=== PATIENT | male | born 1950 | race African-American/Black ===

== ENCOUNTER 2018-06-04 05:12 | Inpatient (IN) ==
[2018-06-04] MEDS ORDERED: ONDANSETRON 4 MG/2 ML VIAL IV PRN (06:30)
[2018-06-04] MEDS ORDERED: GLUCAGON 1 MG VIAL IM PRN (06:33)
[2018-06-04] MEDS ORDERED: DEXTROSE 50% 25 GM/50 ML VIAL IV PRN (06:33)
[2018-06-04] MEDS: SODIUM CHLORIDE 0.9% 1,000 ML IV SCH ×3 (06:40→23:26)
[2018-06-04] MEDS: methylPREDNISolone SOD SUC 40 MG/1 ML VIAL IV SCH ×3 (06:46→23:35)
[2018-06-04] MEDS ORDERED: LIDOCAINE 1% 20 ML VIAL MISC INJ ONE (06:49)
[2018-06-04] MEDS: PROPOFOL 1,000 MG/100 ML BOTTLE IV SCH ×4 (06:55→21:32)
[2018-06-04 07:09] LABS: Basophils % 0.2 % (0.0-0.8); Hematocrit 41.1 VOL% (42.0-52.0); Hemoglobin 14.1 GM/DL (14.0-18.0); Immature Granulocytes Absolute 0.13 #; Lymphocytes # 0.5 10*3/uL (1.4-4.0); Lymphocytes % 3.9 % (21.2-54.2); Mean Corpuscular HGB Conc 34.3 GM/DL (32-36); Mean Corpuscular Hemoglobin 32 PG (27-34); Mean Corpuscular Volume 94.5 FL (87-102); Mean Platelet Volume 11.3 FL (9.6-12.0); Monocytes # 0.6 10*3/uL (0.11-0.8); Monocytes % 4.8 % (1.7-12.7); Neutrophils % 90.1 % (38.7-73.9); Platelet Count 142 T/CUMM (130-400); Red Blood Count 4.35 MC/CUMM (3.8-5.5); Red Cell Distribution Width 14.8 % (9.3-17.3); White Blood Count 13.3 T/CUMM (4-12)
[2018-06-04 07:17] LABS: Apearance,Urine Slightly Hazy (Clear); Bacteria,Urine Occasional /HPF (Few); Bilirubin,Urine Negative (Negative); Blood, Urine Small mg/dL (Negative); Glucose,Urine (UA) 150 mg/dL (Negative); Ketones,Urine 5 mg/dL (Negative); Mucus,Urine Occasional /LPF (Occasional); Nitrite,Urine Negative (Negative); Protein,Urine 100 MG/DL; RBC,Urine 9 /HPF (0-4); Squamous Epithelial Cell,Urine Occasional /HPF (0-10); Urine Color Amber (Yellow); Urine Specific Gravity 1.015 (1.001-1.035); WBC,Urine 11 /HPF (0-6)
[2018-06-04] MEDS ORDERED: POTASSIUM CHLORIDE RIDER 100 ML IV ONE (07:17)
[2018-06-04] MEDS: CEFEPIME 1,000 MG in SYRINGE 1 EACH IV SCH ×2 (07:25→20:22)
[2018-06-04 07:28] LABS: Band Neutrophils 1 % (0-10); Lymphocytes 4 % (20-55); Platelet Estimate Normal; Segmented Neutrophils 89 % (50-85); Total Cells Counted 100
[2018-06-04 07:29] LABS: Hypochromasia 1+; Ovalocytes Slight
[2018-06-04] MEDS: POTASSIUM CHLORIDE RIDER 10 MEQ in PREMIX 1 EACH IV SCH ×2 (07:33→08:30)
[2018-06-04] MEDS: ENOXAPARIN 40 MG/0.4 ML SYRINGE SUBCUT SCH (07:34)
[2018-06-04] MEDS: CLINDAMYCIN INJ 600 MG in PREMIX 1 EACH IV SCH ×3 (07:36→23:35)
[2018-06-04 07:44] LABS: Albumin 3.1 G/DL (3.4-5.0); Bilirubin,Total 2.4 MG/DL (0.2-1.0); Calcium 8.4 MG/DL (8.5-10.1); Osmolality,Calculated 274.8 MOS/KG (273-304); Potassium 3.1 MMOL/L (3.5-5.1); Total Protein 8.5 G/DL (6.4-8.3)
[2018-06-04 08:22] LABS: ABG Base Excess -1.6 MMOL/L (-2.5-2.5); ABG Oxygen Saturation 96.8 % (95-100); ABG PCO2 32.7 MM HG (35-48); ABG PH 7.432 (7.35-7.45); ABG TCO2 18.8 MMOL/L (23-27)
[2018-06-04] MEDS: LANSOPRAZOLE ODT 30 MG TABLET NG SCH (08:50)
[2018-06-04] MEDS: METOPROLOL TARTRATE 50 MG TABLET PO SCH ×2 (08:50→21:58)
[2018-06-04] MEDS: amLODIPine 10 MG TABLET PO SCH (09:00)
[2018-06-04] MEDS: INSULIN LISPRO 100 UNIT/ML SUBCUT SCH ×3 (12:00→23:36)
[2018-06-04] MEDS: fentaNYL INJ 1,250 MCG in SODIUM CHLORIDE 0.9% 225 ML IV PRN (17:25)
[2018-06-04] MEDS: LOVASTATIN 20 MG TABLET PO SCH (18:10)
[2018-06-04] MEDS ORDERED: FUROSEMIDE 20 MG/2 ML VIAL IV ONE (21:30)
[2018-06-04] MEDS ORDERED: SODIUM CHLORIDE 0.9% 1,000 ML IV ONE (23:16)
[2018-06-05] MEDS: SODIUM CHLORIDE 0.9% 1,000 ML IV SCH ×3 (00:15→18:13)
[2018-06-05 03:38] LABS: Basophils % 0.1 % (0.0-0.8); Hematocrit 36.3 VOL% (42.0-52.0); Hemoglobin 12.2 GM/DL (14.0-18.0); Immature Granulocytes % 0.7 %; Lymphocytes # 0.7 10*3/uL (1.4-4.0); Mean Corpuscular HGB Conc 33.6 GM/DL (32-36); Mean Corpuscular Hemoglobin 32 PG (27-34); Mean Platelet Volume 11.6 FL (9.6-12.0); Monocytes # 0.8 10*3/uL (0.11-0.8); Monocytes % 5.2 % (1.7-12.7); Neutrophils # 13.1 10*3/uL (1.4-7.4); Platelet Count 131 T/CUMM (130-400); Red Blood Count 3.82 MC/CUMM (3.8-5.5); White Blood Count 14.7 T/CUMM (4-12)
[2018-06-05 03:47] LABS: ABG Base Excess -3.7 MMOL/L (-2.5-2.5); ABG HCO3 21.4 MMOL/L (20-26); ABG Oxygen Saturation 98.7 % (95-100); ABG PCO2 35.3 MM HG (35-48); ABG PH 7.379 (7.35-7.45); ABG TCO2 18.4 MMOL/L (23-27)
[2018-06-05] MEDS: fentaNYL INJ 1,250 MCG in SODIUM CHLORIDE 0.9% 225 ML IV PRN ×3 (03:55→19:03)
[2018-06-05 04:25] LABS: Calcium 7.9 MG/DL (8.5-10.1); Osmolality,Calculated 286.5 MOS/KG (273-304); Potassium 3.9 MMOL/L (3.5-5.1)
[2018-06-05 04:29] LABS: Prealbumin 7.9 MG/DL (20-40)
[2018-06-05] MEDS: INSULIN LISPRO 100 UNIT/ML SUBCUT SCH ×3 (05:51→18:13)
[2018-06-05] MEDS: methylPREDNISolone SOD SUC 40 MG/1 ML VIAL IV SCH ×3 (06:14→22:13)
[2018-06-05] MEDS: CLINDAMYCIN INJ 600 MG in PREMIX 1 EACH IV SCH ×3 (06:14→22:14)
[2018-06-05] MEDS: PROPOFOL 1,000 MG/100 ML BOTTLE IV SCH ×3 (06:23→19:02)
[2018-06-05] MEDS: CEFEPIME 1,000 MG in SYRINGE 1 EACH IV SCH ×2 (08:52→21:05)
[2018-06-05] MEDS: ENOXAPARIN 40 MG/0.4 ML SYRINGE SUBCUT SCH (08:52)
[2018-06-05] MEDS: amLODIPine 10 MG TABLET PO SCH (09:36)
[2018-06-05] MEDS: LANSOPRAZOLE ODT 30 MG TABLET NG SCH (09:37)
[2018-06-05] MEDS: METOPROLOL TARTRATE 50 MG TABLET PO SCH ×2 (09:37→21:06)
[2018-06-05] MEDS: LOVASTATIN 20 MG TABLET PO SCH (18:13)
[2018-06-06] MEDS: INSULIN LISPRO 100 UNIT/ML SUBCUT SCH ×4 (00:55→19:10)
[2018-06-06] MEDS: fentaNYL INJ 1,250 MCG in SODIUM CHLORIDE 0.9% 225 ML IV PRN ×4 (01:00→20:47)
[2018-06-06] MEDS: SODIUM CHLORIDE 0.9% 1,000 ML IV SCH ×2 (02:55→09:37)
[2018-06-06 03:06] LABS: ABG Base Excess -4.3 MMOL/L (-2.5-2.5); ABG HCO3 20.8 MMOL/L (20-26); ABG Oxygen Saturation 98.2 % (95-100); ABG PCO2 37.7 MM HG (35-48); ABG TCO2 18.5 MMOL/L (23-27); Allen Test Positive; Pt O2 Delivery Device Ventilator
[2018-06-06] MEDS: PROPOFOL 1,000 MG/100 ML BOTTLE IV SCH ×4 (03:10→20:29)
[2018-06-06 04:01] LABS: Hematocrit 35.7 VOL% (42.0-52.0); Immature Granulocytes Absolute 0.13 #; Lymphocytes # 0.6 10*3/uL (1.4-4.0); Lymphocytes % 4.5 % (21.2-54.2); Mean Corpuscular HGB Conc 33.6 GM/DL (32-36); Mean Corpuscular Hemoglobin 31 PG (27-34); Mean Corpuscular Volume 93.2 FL (87-102); Mean Platelet Volume 11.8 FL (9.6-12.0); Monocytes # 0.6 10*3/uL (0.11-0.8); Monocytes % 4.4 % (1.7-12.7); Neutrophils # 11.5 10*3/uL (1.4-7.4); Neutrophils % 90.1 % (38.7-73.9); Platelet Count 145 T/CUMM (130-400); Red Blood Count 3.83 MC/CUMM (3.8-5.5); Red Cell Distribution Width 15.4 % (9.3-17.3); White Blood Count 12.8 T/CUMM (4-12)
[2018-06-06 04:42] LABS: Albumin 2.4 G/DL (3.4-5.0); Bilirubin,Total 0.5 MG/DL (0.2-1.0); Calcium 7.8 MG/DL (8.5-10.1); Osmolality,Calculated 294.4 MOS/KG (273-304)
[2018-06-06 04:56] LABS: Band Neutrophils 2 % (0-10); Hypochromasia 1+; Lymphocytes 3 % (20-55); Segmented Neutrophils 93 % (50-85); Total Cells Counted 100
[2018-06-06 04:57] LABS: Microcytosis Slight; Platelet Estimate Adequate
[2018-06-06] MEDS: CLINDAMYCIN INJ 600 MG in PREMIX 1 EACH IV SCH ×2 (06:23→16:41)
[2018-06-06] MEDS: methylPREDNISolone SOD SUC 40 MG/1 ML VIAL IV SCH ×2 (06:52→16:38)
[2018-06-06] MEDS: CEFEPIME 1,000 MG in SYRINGE 1 EACH IV SCH ×2 (09:31→20:03)
[2018-06-06] MEDS: ENOXAPARIN 40 MG/0.4 ML SYRINGE SUBCUT SCH (09:31)
[2018-06-06] MEDS: LANSOPRAZOLE ODT 30 MG TABLET NG SCH (09:32)
[2018-06-06] MEDS: METOPROLOL TARTRATE 50 MG TABLET PO SCH ×2 (09:32→20:04)
[2018-06-06] MEDS: amLODIPine 10 MG TABLET PO SCH (09:38)
[2018-06-06] MEDS: LACTATED RINGERS 1,000 ML IV SCH ×2 (12:32→22:32)
[2018-06-06] MEDS: LOVASTATIN 20 MG TABLET PO SCH (16:38)
[2018-06-07] MEDS: methylPREDNISolone SOD SUC 40 MG/1 ML VIAL IV SCH ×2 (00:05→06:02)
[2018-06-07] MEDS: CLINDAMYCIN INJ 600 MG in PREMIX 1 EACH IV SCH ×3 (00:06→15:35)
[2018-06-07] MEDS: INSULIN LISPRO 100 UNIT/ML SUBCUT SCH ×5 (00:06→20:13)
[2018-06-07] MEDS: PROPOFOL 1,000 MG/100 ML BOTTLE IV SCH ×2 (01:29→08:03)
[2018-06-07] MEDS: fentaNYL INJ 1,250 MCG in SODIUM CHLORIDE 0.9% 225 ML IV PRN (02:33)
[2018-06-07 04:10] LABS: Basophils % 0.1 % (0.0-0.8); Hematocrit 35.5 VOL% (42.0-52.0); Hemoglobin 11.9 GM/DL (14.0-18.0); Immature Granulocytes % 1.3 %; Immature Granulocytes Absolute 0.14 #; Lymphocytes # 0.7 10*3/uL (1.4-4.0); Lymphocytes % 6.7 % (21.2-54.2); Mean Corpuscular HGB Conc 33.5 GM/DL (32-36); Mean Corpuscular Hemoglobin 32 PG (27-34); Mean Corpuscular Volume 95.9 FL (87-102); Mean Platelet Volume 11.4 FL (9.6-12.0); Monocytes # 0.6 10*3/uL (0.11-0.8); Monocytes % 5.8 % (1.7-12.7); Neutrophils # 9.4 10*3/uL (1.4-7.4); Neutrophils % 86.1 % (38.7-73.9); Platelet Count 160 T/CUMM (130-400); Red Cell Distribution Width 15.4 % (9.3-17.3); White Blood Count 10.9 T/CUMM (4-12)
[2018-06-07 04:12] LABS: ABG Base Excess -2.9 MMOL/L (-2.5-2.5); ABG HCO3 21.9 MMOL/L (20-26); ABG Oxygen Saturation 94.4 % (95-100); ABG PCO2 41.8 MM HG (35-48); ABG PH 7.344 (7.35-7.45); ABG PO2 80.5 MM HG (80-95); ABG TCO2 20.3 MMOL/L (23-27)
[2018-06-07 04:46] LABS: Prealbumin 15.6 MG/DL (20-40)
[2018-06-07 05:01] LABS: Calcium 7.9 MG/DL (8.5-10.1); Osmolality,Calculated 296.1 MOS/KG (273-304); Potassium 4.3 MMOL/L (3.5-5.1)
[2018-06-07] MEDS: CEFEPIME 1,000 MG in SYRINGE 1 EACH IV SCH (08:04)
[2018-06-07] MEDS: ENOXAPARIN 40 MG/0.4 ML SYRINGE SUBCUT SCH (08:04)
[2018-06-07] MEDS: LANSOPRAZOLE ODT 30 MG TABLET NG SCH (08:05)
[2018-06-07] MEDS: amLODIPine 10 MG TABLET PO SCH (08:05)
[2018-06-07] MEDS: METOPROLOL TARTRATE 50 MG TABLET PO SCH ×2 (08:05→20:14)
[2018-06-07 08:39] LABS: ABG Base Excess -2.7 MMOL/L (-2.5-2.5); ABG HCO3 22.1 MMOL/L (20-26); ABG Oxygen Saturation 95.8 % (95-100); ABG PCO2 38.6 MM HG (35-48); ABG PH 7.368 (7.35-7.45); ABG PO2 86.3 MM HG (80-95); ABG TCO2 19.5 MMOL/L (23-27); Allen Test Positive; Pt O2 Delivery Device Ventilator
[2018-06-07] MEDS: LACTATED RINGERS 1,000 ML IV SCH ×2 (10:40→20:13)
[2018-06-07] MEDS ORDERED: predniSONE 20 MG TABLET PO SCH (11:00)
[2018-06-07] MEDS: traZODone 50 MG TABLET PO SCH (12:00)
[2018-06-07] MEDS: FUROSEMIDE 20 MG TABLET PO SCH (12:00)
[2018-06-07] MEDS: hydrALAZINE 20 MG/1 ML VIAL IV PRN (16:32)
[2018-06-07] MEDS: cefTRIAXone 1,000 MG in SYRINGE 1 EACH IV SCH (17:56)
[2018-06-07] MEDS: LOVASTATIN 20 MG TABLET PO SCH (18:27)
[2018-06-07] MEDS: DABIGATRAN 150 MG CAPSULE PO SCH (20:14)
[2018-06-07] MEDS: MIRTAZAPINE 15 MG TABLET PO SCH (20:14)
[2018-06-08 03:57] LABS: Calcium 7.8 MG/DL (8.5-10.1); Potassium 3.8 MMOL/L (3.5-5.1)
[2018-06-08] MEDS: LACTATED RINGERS 1,000 ML IV SCH ×2 (06:10→17:19)
[2018-06-08] MEDS: PROPOFOL 1,000 MG/100 ML BOTTLE IV SCH (06:10)
[2018-06-08] MEDS ORDERED: predniSONE 20 MG TABLET PO SCH (07:27)
[2018-06-08] MEDS: INSULIN LISPRO 100 UNIT/ML SUBCUT SCH ×4 (08:02→21:16)
[2018-06-08] MEDS: LANSOPRAZOLE ODT 30 MG TABLET NG SCH (08:09)
[2018-06-08] MEDS: METOPROLOL TARTRATE 50 MG TABLET PO SCH ×2 (08:09→21:18)
[2018-06-08] MEDS: DABIGATRAN 150 MG CAPSULE PO SCH ×2 (08:09→21:18)
[2018-06-08] MEDS: amLODIPine 10 MG TABLET PO SCH (08:09)
[2018-06-08] MEDS: traZODone 50 MG TABLET PO SCH (08:10)
[2018-06-08] MEDS: FUROSEMIDE 20 MG TABLET PO SCH (08:10)
[2018-06-08] MEDS: cefTRIAXone 1,000 MG in SYRINGE 1 EACH IV SCH (15:47)
[2018-06-08] MEDS: hydrALAZINE 20 MG/1 ML VIAL IV PRN (16:11)
[2018-06-08] MEDS: LOVASTATIN 20 MG TABLET PO SCH (17:27)
[2018-06-08] MEDS: MIRTAZAPINE 15 MG TABLET PO SCH (21:18)
[2018-06-09] MEDS: LACTATED RINGERS 1,000 ML IV SCH (03:08)
[2018-06-09] MEDS: hydrALAZINE 20 MG/1 ML VIAL IV PRN (03:40)
[2018-06-09] MEDS: INSULIN LISPRO 100 UNIT/ML SUBCUT SCH ×4 (08:57→21:06)
[2018-06-09] MEDS: DABIGATRAN 150 MG CAPSULE PO SCH ×2 (10:40→21:05)
[2018-06-09] MEDS: NYSTATIN 500,000 UNIT/5 ML UDCUP SWISH/SWAL SCH ×4 (10:41→21:05)
[2018-06-09] MEDS: METOPROLOL TARTRATE 50 MG TABLET PO SCH ×2 (10:41→21:06)
[2018-06-09] MEDS: LANSOPRAZOLE ODT 30 MG TABLET NG SCH (10:41)
[2018-06-09] MEDS: amLODIPine 10 MG TABLET PO SCH (10:41)
[2018-06-09] MEDS: traZODone 50 MG TABLET PO SCH (10:41)
[2018-06-09] MEDS: predniSONE 20 MG TABLET PO SCH (10:41)
[2018-06-09] MEDS: FUROSEMIDE 20 MG TABLET PO SCH (10:41)
[2018-06-09] MEDS: LOVASTATIN 20 MG TABLET PO SCH (16:19)
[2018-06-09] MEDS: cefTRIAXone 1,000 MG in SYRINGE 1 EACH IV SCH (16:19)
[2018-06-09] MEDS: MIRTAZAPINE 15 MG TABLET PO SCH (21:06)
[2018-06-10] MEDS: hydrALAZINE 20 MG/1 ML VIAL IV PRN (05:38)
[2018-06-10 07:04] LABS: Eosinophils # 0.1 10*3/uL (0.0-0.87); Eosinophils % 0.7 % (0.00-10.9); Hematocrit 39.5 VOL% (42.0-52.0); Hemoglobin 13.4 GM/DL (14.0-18.0); Immature Granulocytes % 1.4 %; Immature Granulocytes Absolute 0.11 #; Lymphocytes # 1.9 10*3/uL (1.4-4.0); Lymphocytes % 24.6 % (21.2-54.2); Mean Corpuscular HGB Conc 33.9 GM/DL (32-36); Mean Corpuscular Hemoglobin 31 PG (27-34); Mean Corpuscular Volume 92.3 FL (87-102); Mean Platelet Volume 10.8 FL (9.6-12.0); Monocytes # 0.8 10*3/uL (0.11-0.8); Neutrophils # 4.8 10*3/uL (1.4-7.4); Neutrophils % 62.3 % (38.7-73.9); Platelet Count 174 T/CUMM (130-400); Red Blood Count 4.28 MC/CUMM (3.8-5.5); Red Cell Distribution Width 14.8 % (9.3-17.3); White Blood Count 7.6 T/CUMM (4-12)
[2018-06-10 07:19] LABS: Calcium 7.8 MG/DL (8.5-10.1)
[2018-06-10 07:32] LABS: Lymphocytes 28 % (20-55); Segmented Neutrophils 64 % (50-85); Total Cells Counted 100
[2018-06-10 07:33] LABS: Hypochromasia 1+; Platelet Estimate Adequate
[2018-06-10] MEDS: INSULIN LISPRO 100 UNIT/ML SUBCUT SCH ×4 (09:25→20:59)
[2018-06-10] MEDS: traZODone 50 MG TABLET PO SCH (09:26)
[2018-06-10] MEDS: amLODIPine 10 MG TABLET PO SCH (09:30)
[2018-06-10] MEDS: predniSONE 20 MG TABLET PO SCH (09:30)
[2018-06-10] MEDS: DABIGATRAN 150 MG CAPSULE PO SCH ×2 (09:30→20:59)
[2018-06-10] MEDS: NYSTATIN 500,000 UNIT/5 ML UDCUP SWISH/SWAL SCH ×4 (09:30→20:59)
[2018-06-10] MEDS: METOPROLOL TARTRATE 50 MG TABLET PO SCH ×2 (09:31→20:58)
[2018-06-10] MEDS: LANSOPRAZOLE ODT 30 MG TABLET NG SCH (09:31)
[2018-06-10] MEDS: FUROSEMIDE 20 MG TABLET PO SCH (09:31)
[2018-06-10] MEDS: cefTRIAXone 1,000 MG in SYRINGE 1 EACH IV SCH (15:43)
[2018-06-10] MEDS: POTASSIUM CHLORIDE 20 MEQ TABLET PO PRN ×2 (15:43→17:04)
[2018-06-10] MEDS: LOVASTATIN 20 MG TABLET PO SCH (17:06)
[2018-06-10] MEDS: MIRTAZAPINE 15 MG TABLET PO SCH (20:58)
[2018-06-10 21:00] LABS: Apearance,Urine Slightly Hazy (Clear); Bilirubin,Urine Negative (Negative); Blood, Urine Negative (Negative); Glucose,Urine (UA) Negative (Negative); Hyaline Casts,Urine 1 /LPF (0-3); Ketones,Urine Negative (Negative); Mucus,Urine Occasional /LPF (Occasional); Nitrite,Urine Negative (Negative); Protein,Urine Negative; RBC,Urine 3 /HPF (0-4); Squamous Epithelial Cell,Urine Occasional /HPF (0-10); Urine Color Amber (Yellow); Urine Specific Gravity 1.018 (1.001-1.035); WBC,Urine 10 /HPF (0-6)
[2018-06-11 07:31] VITALS: BP 144/82
[2018-06-11] MEDS: FUROSEMIDE 20 MG TABLET PO SCH (09:34)
[2018-06-11] MEDS: traZODone 50 MG TABLET PO SCH (09:34)
[2018-06-11] MEDS: amLODIPine 10 MG TABLET PO SCH (09:34)
[2018-06-11] MEDS: LANSOPRAZOLE ODT 30 MG TABLET NG SCH (09:34)
[2018-06-11] MEDS: DABIGATRAN 150 MG CAPSULE PO SCH (09:34)
[2018-06-11] MEDS: predniSONE 20 MG TABLET PO SCH (09:35)
[2018-06-11] MEDS: METOPROLOL TARTRATE 50 MG TABLET PO SCH (09:35)
[2018-06-11] MEDS: NYSTATIN 500,000 UNIT/5 ML UDCUP SWISH/SWAL SCH (09:35)
[2018-06-11] MEDS: INSULIN LISPRO 100 UNIT/ML SUBCUT SCH (11:10)
== END 2018-06-11 11:07 | disposition home or self-care (01) | DRG 208 ==
LOC: N.ICU 06:11 → SUATTDRO 06:11 → N.5E 06-08 16:29
PROVIDERS: ADMIT Family Medicine